=== PATIENT | female | born 1950 ===

== ENCOUNTER 2023-12-23 15:18 | Emergency (ER) | payer OTHER, MEDICARE ==
[~2023-12-23] VITALS: Ht 160 cm; Wt 86.2 kg
[2023-12-23] MEDS ORDERED: EUTHYROX175 MCG PO (15:31)
[2023-12-23] MEDS ORDERED: Prinivil10 MG PO (15:31)
[2023-12-23] MEDS ORDERED: OMEP20ER PO (15:31)
[2023-12-23] MEDS ORDERED: ATOR40TA PO (15:31)
[2023-12-23] MEDS ORDERED: Acetaminophen 500 MG Tab PO ONE (16:25)
[2023-12-23] MEDS ORDERED: Lidocaine 4% 1 Patch TOP ONE (16:25)
[2023-12-23] MEDS ORDERED: Cyclobenzaprine HCl 10 MG Tab PO ONE (16:25)
[2023-12-23] MEDS ORDERED: CYCL10 PO (17:02)
[2023-12-23] MEDS ORDERED: ACET500 PO (17:03)
[2023-12-23 20:17] LABS: Calcium, Ionized (POC) 1.22 mmol/L (1.10-1.46); Chloride (POC) 107 mmol/L (98-108); Creatinine (POC) 0.7 mg/dL (0.6-1.0); Glucose (ISTAT POC) 103 mg/dL (70-99); Hemoglobin (POC) 12.2 g/dL (12.0-16.0); Potassium (POC) 4.1 mmol/L (3.5-5.5); Sodium (POC) 140 mmol/L (135-148); Total CO2 (POC) 22 mmol/L (21-32)
== END 2023-12-24 00:41 | disposition home or self-care (01) ==
LOC: ER 15:18
PROVIDERS: Student in an Organized Health Care Education/Training Program
DX: M25.511 Pain in right shoulder (principal); M25.512 Pain in left shoulder; M54.2 Cervicalgia; Z55.0 Illiteracy and low-level literacy; Z91.040 Latex allergy status; Z91.018 Allergy to other foods; Z79.899 Other long term (current) drug therapy; K21.9 Gastro-esophageal reflux disease without esophagitis; I10 Essential (primary) hypertension; E03.9 Hypothyroidism, unspecified; E78.00 Pure hypercholesterolemia, unspecified; V43.52XA Car driver injured in collision with other type car in traffic accident, initial encounter
CPT/HCPCS: 70450; 71275; 72125; 73030; 80047; 85014; 99284-25; A9270; Q9967